=== PATIENT | female | born 1970 | race American Indian/Alaskan Native ===

== ENCOUNTER 2020-02-06 13:01 | Emergency (ER) | payer MEDICAID, MEDICARE ==
[2020-02-06 13:46] VITALS: BP 185/80
== END 2020-02-06 18:59 | disposition left against medical advice (07) ==
LOC: ED 13:01
DX: R10.9 Unspecified abdominal pain (principal); Z53.21 Procedure and treatment not carried out due to patient leaving prior to being seen by health care provider